=== PATIENT | male | born 1990 | race Caucasian/White ===

== ENCOUNTER 2017-02-05 22:00 | Emergency (ER) | payer BC ==
[~2017-02-05] VITALS: Ht 175.3 cm; Wt 59.0 kg
--- NOTE | 2017-02-05 22:15 | NUR ---
Pt to room with family and c/o mid abd pain, denies N/V/D. Pt resting in position of comfort for self. Awaiting MD evaluation
--- NOTE | 2017-02-05 22:25 | NUR ---
Dr. Amaya at bedside for MSE
[2017-02-05] MEDS: IV NORMAL SALINE 1000 ML BAG IV ONE (22:35)
[2017-02-05] MEDS: PANTOPRAZOLE SODIUM 40 MG VIAL IV ONE (22:36)
[2017-02-05] MEDS ORDERED: PANTOPRAZOLE SODIUM 40 MG VIAL ONE (22:37)
[2017-02-05 22:41] LABS: BASOPHILS # (AUTO) 0.1 K/uL (0.0-8.0); BASOPHILS % (AUTO) 0.7 % (0.0-2.0); EOSINOPHILS # (AUTO) 0.3 K/uL (0.0-0.7); EOSINOPHILS % (AUTO) 3.7 % (0.0-7.0); HEMATOCRIT 48.5 % (40-50); HEMOGLOBIN 16.3 G/DL (14.0-18.0); LYMPHOCYTES # (AUTO) 2.5 K/UL (0.8-4.8); LYMPHOCYTES % (AUTO) 31.5 % (20.5-51.5); MEAN CORPUSCULAR HEMOGLOBIN 29.9 UUG (27.0-31.0); MEAN CORPUSCULAR HGB CONC 34 g/dL (32.0-37.0); MONOCYTES # (AUTO) 0.7 K/UL (0.1-1.30); MONOCYTES % (AUTO) 8.7 % (0.0-11.0); NEUTROPHILS # (AUTO) 4.3 K/UL (1.8-8.9); NEUTROPHILS % (AUTO) 55.4 % (38.5-71.5); PLATELET COUNT (AUTO) 243 K/UL (150-450); RED BLOOD CELL COUNT(AUTO) 5.45 MIL/UL (4.7-6.1); WHITE BLOOD COUNT (AUTO) 7.9 K/UL (4.0-11.2)
[2017-02-05] MEDS: DICYCLOMINE HCL 10 MG/5 ML UDC LIQ PO ONE (22:41)
[2017-02-05] MEDS: MAG HYDROX/AL HYDROX/SIMETH 30 ML LIQUID UDC PO ONE (22:41)
--- NOTE | 2017-02-05 22:45 | NUR ---
IV established, labs drawn and sent. Pt medicated for discomfort, will monitor for effects of medication. Fluid bolus infusing freely to gravity. Pt to CT via gurney.
[2017-02-05] MEDS ORDERED: DICYCLOMINE HCL 10 MG/5 ML UDC LIQ ONE ×2 (22:51)
[2017-02-05] MEDS ORDERED: MAG HYDROX/AL HYDROX/SIMETH 30 ML LIQUID UDC ONE (22:51)
[2017-02-05 22:54] LABS: BILIRUBIN,DIRECT 0.1 mg/dL (0.0-0.2); BILIRUBIN,TOTAL 0.4 mg/dL (0.2-1.0); CREATININE 0.8 mg/dL (0.6-1.3); POTASSIUM 3.5 mmol/L (3.5-5.1); TOTAL PROTEIN, SERUM 7.5 g/dL (6.4-8.2)
--- NOTE | 2017-02-05 23:03 | NUR ---
Pt returned from CT. Resting in position of comfort for self. No complaints at this time and denies pain
--- NOTE | 2017-02-05 23:35 | NUR ---
Pt denies pain. Pt stable for discharge per MD. IV dc'd, catheter intact. Drsg applied. No problems noted to site. Pt given ACI. Pt verbalized understanding of dc instructions. Pt ambulated out of ER with steady gait.
[2017-02-05 23:51] VITALS: BP 120/75
== END 2017-02-05 23:35 | disposition home or self-care (01) ==
LOC: ER 22:01
DX: K29.70 Gastritis, unspecified, without bleeding (principal)
CPT/HCPCS: 36415; 83690; 85025; A4663; C9113; J7030

== ENCOUNTER 2017-06-22 11:24 | Emergency (ER) | payer BC ==
[~2017-06-22] VITALS: Ht 175.3 cm; Wt 59.0 kg
[2017-06-22 12:21] VITALS: BP 78/120
== END 2017-06-22 12:22 | disposition home or self-care (01) ==
LOC: ER 11:24
DX: R59.0 Localized enlarged lymph nodes (principal)
CPT/HCPCS: 99281; A4663

== ENCOUNTER 2022-09-23 20:03 | Emergency (ER) | payer BC ==
--- NOTE | 2022-09-23 20:45 | NUR ---
Patient was just called to be triaged at this time due to a critical patient arriving by rescue when patient was registered. Patient was called but not present in the waiting room or outside of ER.
--- NOTE | 2022-09-23 21:00 | NUR ---
Patient was called to be triaged but was not present in the waiting room or outside of ER.
--- NOTE | 2022-09-23 21:38 | NUR ---
Patient was called to be triaged but was not present in the waiting room or outside of ER. PATIENT WAS NOT TRIAGED OR SEEN BY ERMD.
== END 2022-09-23 21:39 | disposition left against medical advice (07) ==
LOC: ER 20:12
DX: Z53.21 Procedure and treatment not carried out due to patient leaving prior to being seen by health care provider (principal)
CPT/HCPCS: A4663